=== PATIENT | male | born 1950 | race Caucasian/White ===

== ENCOUNTER 2017-02-24 08:49 | Day surgery (SDC) | payer MEDICARE, BC ==
[2017-02-24] VITALS (628 sets, daily range): BP systolic 77–135; BP diastolic 50–84; PULSE 69–737; TEMP 97.1–98; O2SAT 73–100
[~2017-02-24] VITALS: Ht 177.8 cm; Wt 62.7 kg
[~2017-02-24 08:49] MED LIST: ASPIRIN 81M81 MG/TA2 PO; ATIVAN 0.50.5 MG/TAB PO; CALCIUM 600/VIT1 CAP PO; COLACE 100100 MG/CAP PO; FOSAMAX70 MG/75 M PO; IMDUR 30MG30 MG/TAB PO; LIPITOR 10MG10 MG PO; LIPITOR 40MG TA40 MG PO; METAMUCIL3.4 GM/DOS PO; MIRALAX PA17 GM/Dose PO; MULTI VITAMINS1 TAB PO; PLAVIX 75MG TAB75 MG PO; PROAIR HFA0.09 MG/AC IH; REMERON30 MG PO; TOPROL XL 50MG50 MG PO; ZANTAC 7575 MG PO
[2017-02-24 09:40] LABS: MEAN CELL VOLUME 92 fl (80.0-100.0); MEAN CORPUSCULAR HEMOGLOBIN 32 pg (27.0-31.0); MEAN CORPUSCULAR HGB CONC 35 g/dl (33.0-37.0); MEAN PLATELET VOLUME 8.2 fl (7.4-10.4); PLATELET COUNT 182 K/mm3 (130-400); RED BLOOD COUNT 4.34 M/mm3 (4.20-5.60); REDCELL DISTRIBUTION WIDTH-CV 11.8 % (11.5-14.5)
[2017-02-24 09:46] LABS: PROTHROMBIN TIME 11.7 SECONDS (9.7-12.8)
[2017-02-24] MEDS ORDERED: CARTIA XT180 MG PO (09:49)
[2017-02-24] MEDS ORDERED: LIPITOR 80MG80 MG PO (09:50)
[2017-02-24] MEDS ORDERED: TYLENOL 500MG500 MG PO (09:51)
[2017-02-24] MEDS ORDERED: NITROSTAT0.4 MG/TAB SL (09:52)
[2017-02-24 09:53] LABS: CALCIUM 9.2 mg/dL (8.4-10.2); CREATININE, serum 0.76 mg/dL (0.66-1.25); POTASSIUM 4.1 mmol/L (3.4-5.0)
[2017-02-24] MEDS ORDERED: REVATIO20 MG PO (17:40)
[2017-02-25] VITALS (503 sets, daily range): BP systolic 102–104; BP diastolic 55–71; PULSE 71–81; TEMP 97.6–98.2; O2SAT 70–100
[2017-02-25 05:24] LABS: HEMATOCRIT 37.9 % (42.0-52.0); HEMOGLOBIN 13.1 g/dl (13.5-18.0); MEAN CELL VOLUME 94 fl (80.0-100.0); MEAN CORPUSCULAR HEMOGLOBIN 32 pg (27.0-31.0); MEAN CORPUSCULAR HGB CONC 35 g/dl (33.0-37.0); MEAN PLATELET VOLUME 8.2 fl (7.4-10.4); PLATELET COUNT 172 K/mm3 (130-400); RED BLOOD COUNT 4.05 M/mm3 (4.20-5.60); REDCELL DISTRIBUTION WIDTH-CV 11.9 % (11.5-14.5)
[2017-02-25 05:35] LABS: CALCIUM 8.7 mg/dL (8.4-10.2); CREATININE, serum 0.73 mg/dL (0.66-1.25)
== END 2017-02-25 12:30 | disposition home or self-care (01) ==
LOC: COL.CAR 08:49 → ICU 12:33 → COL.CAR 02-25 12:30
PROVIDERS: Internal Medicine Cardiovascular Disease
DX: I25.10 Atherosclerotic heart disease of native coronary artery without angina pectoris (principal); I25.2 Old myocardial infarction; I10 Essential (primary) hypertension; E78.5 Hyperlipidemia, unspecified; Z79.82 Long term (current) use of aspirin; Z87.891 Personal history of nicotine dependence; Z68.1 Body mass index [BMI] 19.9 or less, adult; E78.2 Mixed hyperlipidemia
CPT/HCPCS: OP; C9600; J0583; J2250; J3010; Q9967

== ENCOUNTER 2020-06-02 09:44 | Day surgery (SDC) | payer MEDICARE, BC ==
[2020-06-02] VITALS (8 sets, daily range): BP systolic 124–140; BP diastolic 72–89; PULSE 71–100; TEMP 98.1–98.3
[~2020-06-02] VITALS: Ht 177.8 cm; Wt 67.0 kg
[~2020-06-02 09:44] MED LIST changes: +CALCIUM 600/VIT1 CA1 PO; -CALCIUM 600/VIT1 CAP PO; +CARTIA XT180 MG PO; +LIPITOR 80MG80 MG PO; -MULTI VITAMINS1 TAB PO; +MULTIPLE VITAMI1 TA5 PO; +NITROSTAT0.4 MG/TAB SL; +REVATIO20 MG PO; +TYLENOL 500MG500 MG PO
[2020-06-02] MEDS ORDERED: ATIVAN 0.50.5 MG/TAB PO (11:20)
[2020-06-02] MEDS ORDERED: PEPCID 20MG TAB20 MG PO (11:20)
[2020-06-02] MEDS ORDERED: PHILLIPS'311 MG PO (11:21)
[2020-06-02] MEDS ORDERED: VENTOLIN0.09 MG IH (11:22)
[2020-06-02] MEDS ORDERED: CRESTOR40 MG PO (11:22)
[2020-06-02] MEDS ORDERED: NORCO 325 MG-51 TAB PO (12:42)
[2020-06-02] MEDS ORDERED: COLACE 100100 MG/CAP PO (12:42)
--- NOTE | 2020-06-02 14:10 | NUR ---
Patient returns to room 5 per cart from PACU and is awake and alert. IV fluids continue to infuse. Spouse in room. Siderails up x3 and call light in reach. Scrotal support in place and 4x4's clean and dry. Denies pain or nausea. Sipping on juice and water.
--- NOTE | 2020-06-02 14:25 | NUR ---
Resting and denies pain or nausea.
--- NOTE | 2020-06-02 14:40 | NUR ---
Resting and room air sats 96%. Continues to deny pain or nausea.
--- NOTE | 2020-06-02 14:55 | NUR ---
Eating muffin and denies pain or nausea.
--- NOTE | 2020-06-02 15:10 | NUR ---
Resting and denies pain or nausea. Scrotal support on and 4x4's dry. Wound edges well approixmated and incision covered with Exofin.
--- NOTE | 2020-06-02 15:45 | NUR ---
IV converted to INT. Assisted up to the bathroom and gait is steady. Unable to void and returns to room. Given glass of water and will attempt later.
--- NOTE | 2020-06-02 16:00 | NUR ---
Again up to the bathroom and gait steady. Able to void and returns to room. INT needle discontinued. Patient dresses self. Spouse remains in the room.
--- NOTE | 2020-06-02 16:23 | NUR ---
Dismissal instructions given and voices understanding of these.
--- NOTE | 2020-06-02 16:30 | NUR ---
Patient dismissed to home driven by spouse and taken to the front door per wheelchair and assisted into car with instructions in hand.
== END 2020-06-02 16:30 | disposition home or self-care (01) ==
LOC: SDCO 09:44
DX: C62.92 Malignant neoplasm of left testis, unspecified whether descended or undescended (principal); M81.0 Age-related osteoporosis without current pathological fracture; E78.5 Hyperlipidemia, unspecified; E78.00 Pure hypercholesterolemia, unspecified; J44.9 Chronic obstructive pulmonary disease, unspecified; K59.00 Constipation, unspecified; K21.9 Gastro-esophageal reflux disease without esophagitis; I25.10 Atherosclerotic heart disease of native coronary artery without angina pectoris; F41.9 Anxiety disorder, unspecified; I25.2 Old myocardial infarction; Z79.02 Long term (current) use of antithrombotics/antiplatelets; Z79.83 Long term (current) use of bisphosphonates; Z79.899 Other long term (current) drug therapy; Z95.5 Presence of coronary angioplasty implant and graft; Z79.82 Long term (current) use of aspirin
CPT/HCPCS: J0690; J1100; J1885; J2405; J2704; J3010; J7120

== ENCOUNTER 2021-08-31 07:50 | Day surgery (SDC) | payer MEDICARE, BC ==
[2021-08-31] VITALS (15 sets, daily range): BP systolic 103–125; BP diastolic 62–83; PULSE 65–98; TEMP 97.3–97.9
[~2021-08-31] VITALS: Ht 177.8 cm; Wt 60.5 kg
[~2021-08-31 07:50] MED LIST changes: +CALCIUM 600 PLU1 TAB PO; -CALCIUM 600/VIT1 CA1 PO; +CRESTOR40 MG PO; +NORCO 325 MG-51 TAB PO; +PEPCID 20MG TAB20 MG PO; +PHILLIPS'311 MG PO; +VENTOLIN0.09 MG IH
[2021-08-31 09:12] LABS: HEMATOCRIT 39.7 % (42.0-52.0); HEMOGLOBIN 14.1 g/dl (13.5-18.0); MEAN CELL VOLUME 91 fl (80.0-100.0); MEAN CORPUSCULAR HEMOGLOBIN 32 pg (27-31); MEAN CORPUSCULAR HGB CONC 36 g/dl (33.0-37.0); MEAN PLATELET VOLUME 8.2 fl (7.4-10.4); PLATELET COUNT 164 K/mm3 (130-400); RED BLOOD COUNT 4.38 M/mm3 (4.20-5.60); REDCELL DISTRIBUTION WIDTH-CV 12.4 % (11.5-14.5)
[2021-08-31 09:20] LABS: PROTHROMBIN TIME 11.9 SECONDS (9.7-12.8)
[2021-08-31 09:34] LABS: CALCIUM 9.1 mg/dL (8.4-10.2); CREATININE, serum 0.8 mg/dL (0.72-1.25); POTASSIUM 4.1 mmol/L (3.5-4.5)
[2021-08-31] MEDS ORDERED: PLAVIX 75MG TAB75 MG PO (09:59)
[2021-08-31] MEDS ORDERED: STOOL SOFTENER100 M2 PO (09:59)
--- NOTE | 2021-08-31 10:26 | NUR ---
SEE MERGE FOR ALL MEDICATION ADMINISTRATION TIMES, INTRA AND POST SEDATION ASSESSMENTS
--- NOTE | 2021-08-31 17:46 | NUR ---
Patient admitted to room 310 from general laborer following heart cath. Admission assessment completed. Pharmacy, allergies, and medications reviewed. Radial compression band deflated per protocol. No s/s of complications. Dynamap in use for post op vitals. VSS. Patient A&O. PRN tylenol given for a headache rated a 2/10. Patient denies any further pain, discomfort, SOA, or further needs at this time. Call light in reach. at the bedside.
--- NOTE | 2021-08-31 23:15 | NUR ---
ALERT AND OX3. DENIES SOA, CHEST PAIN OR DIZZY. RT WRIST SMALL BRUSING, NO HEMOTOMA C/D/I. SR ON TELE. IND IN ROOM. EKG IN AM. POSSIBLE DC TOMORROW. PM MEDS GIVEN. CALL LIGHT WI REACH.
[2021-09-01 00:32] VITALS: BP 108/68; PULSE 65; TEMP 97.6
[2021-09-01 03:44] VITALS: BP 115/74; PULSE 72; TEMP 97.6
[2021-09-01 07:20] VITALS: BP 113/67; PULSE 79; TEMP 98.1
--- NOTE | 2021-09-01 08:15 | NUR ---
PT SITTING UP IN BED. PT STATES THAT HE IS NOT HAVING ANY CHEST PAIN OR DISCOMFORT AT THIS TIME. RIGHT RADIAL BANDAID IS DRY AND INTACT. NO BLEEDING NOTED. PT STATES THAT HE WOULD LIKE TO HAVE SOME COBAND AROUND HIS WRIST TO HELP HIM KEEP IT STRAIGHT. THIS WAS APPLIED. PT STATES THAT HE IS "JUST READY TO GET OUT OF HERE." EXPLAINED TO PT THAT WE HAVE TO WAIT UNTIL DR COMES IN AND PUT IN ORDERS AND THE TIME OF THAT IS UNKNOWN. PT VOICES UNDERSTANDING. AT BEDSIDE. NO OTHER NEEDS/CONCERNS VOICED AT THIS TIME. CALL LIGHT IS WITHIN REACH.
--- NOTE | 2021-09-01 10:12 | NUR ---
Initial visit; Patient thanked Software Engineer Sales for looking in on him and offering prayer and God's blessings for a successful procedure and rapid healing. Patient and his thanked Software Engineer Sales for also keeping him in her prayers.
[2021-09-01 10:57] LABS: CALCIUM 9.1 mg/dL (8.4-10.2); CREATININE, serum 0.83 mg/dL (0.72-1.25); POTASSIUM 4.1 mmol/L (3.5-4.5)
--- NOTE | 2021-09-01 10:57 | NUR ---
Radial Heart Cath- Reviewed discharge instructions for heart catherization. Discussed when to contact the physician for signs of symptoms of complications or UT. Also reviewed risk factors for heart disease. Covered applicable modifiable risk factors including the following: tobacco cessation, HTN, hyperlipidemia, diabetes, overweight/obesity, sedentary lifestyle, and stress/depression. Patient verbalized understanding. Referral sent to [facility] with patient's permission.
--- NOTE | 2021-09-01 11:18 | NUR ---
table worker packager met with patient to complete intake and discuss discharge plan. Patient's Saranya ([phone]) present at bedside. Patient lives at home with his in [place]. He is independent with his ADL's and does not utilize any DME at home to assist with mobility. Patient has no home oxygen needs. PCP is Rachael Rosas in and her utilizes [facility] in for prescriptions. Patient reports that he does have a DPOA-HC established listing his Saranya. Patient is planning on returning home once medically ready. Discharge plan: Home
[2021-09-01 11:20] LABS: BASO % 0.7 % (0.0-2.0); EOS # 0.4 K/mm3 (0.0-0.7); EOS % 5.9 % (0.0-4.0); GRAN # 3.8 K/mm3 (1.4-6.5); GRAN % 63.6 % (42.2-75.2); HEMATOCRIT 40.2 % (42.0-52.0); HEMOGLOBIN 13.8 g/dl (13.5-18.0); LYMPH # 1.3 K/mm3 (1.2-3.4); LYMPH % 21.1 % (20.0-51.0); MEAN CELL VOLUME 94 fl (80.0-100.0); MEAN CORPUSCULAR HEMOGLOBIN 32 pg (27-31); MEAN CORPUSCULAR HGB CONC 34 g/dl (33.0-37.0); MEAN PLATELET VOLUME 8.5 fl (7.4-10.4); MONO # 0.5 K/mm3 (0.1-0.6); MONO % 8.4 % (1.7-9.3); PLATELET COUNT 198 K/mm3 (130-400); RED BLOOD COUNT 4.27 M/mm3 (4.20-5.60); REDCELL DISTRIBUTION WIDTH-CV 12.7 % (11.5-14.5)
[2021-09-01 11:51] VITALS: BP 134/68; PULSE 83; TEMP 97.9
== END 2021-09-01 13:40 | disposition home or self-care (01) ==
LOC: COL.CAR 07:50 → MEDICAL 12:55 → COL.CAR 09-01 13:40
PROVIDERS: Internal Medicine Cardiovascular Disease
DX: I25.10 Atherosclerotic heart disease of native coronary artery without angina pectoris (principal); F17.290 Nicotine dependence, other tobacco product, uncomplicated; I10 Essential (primary) hypertension; E78.2 Mixed hyperlipidemia; I34.0 Nonrheumatic mitral (valve) insufficiency; I25.2 Old myocardial infarction
CPT/HCPCS: OP; C1725; C1769; C1874; C1887; J0583; J0690; J1644; J2250; J3010